=== PATIENT | female | born 1980 | race Caucasian/White ===

== ENCOUNTER → 2021-12-27 | Outpatient (CLI) ==
[~2021-12-27] MED LIST: ACYC-109; ALPR.5T PO; AZTH50T PO; BSP5T PO; CANASA PR; CIPR-225 PO; CITA40TA19 PO; CLN.1T PO; CPR500T PO; DCS100C; FEXO180T PO; FLUT1DIS26 IH; IBP800T; LABE100T2; LVB.63NB3; MESA1.2T PO; METH4TAB PO; METR500T PO; MMT17NA NS; MNTL10T PO; NEBI5TAB8 PO; ORTHOTRICYCLIN PO; OXC5T; PRD10T PO; PRD20T PO; RT-COMBINH IH; [UNRECOGNIZED DRUG - OTHER]
== END ==
LOC: LABNPT 12:18
PROVIDERS: ATTEND Obstetrics & Gynecology
DX: Z53.9 Procedure and treatment not carried out, unspecified reason (principal)

== ENCOUNTER → 2021-12-27 | Outpatient (CLI) | LOC: MERGE 10:25 → LABNPT 10:25 | PROVIDERS: ATTEND Obstetrics & Gynecology | DX: N89.8 Other specified noninflammatory disorders of vagina (principal); N95.9 Unspecified menopausal and perimenopausal disorder | CPT/HCPCS: 83001; 84443; 87070; 87077; 87088; 87205 ==

== ENCOUNTER → 2022-01-22 | Outpatient (CLI) | payer OTHER ==
--- NOTE | 2022-01-22 18:19 | Diagnostic Imaging Report ---
INDICATION: Routine screening. COMPARISON is made with prior mammograms 01/19/2021 and 12/29/2019. 2-D and 3-D bilateral screening mammography was performed CAD. Both breasts remain heterogeneously dense, limiting the sensitivity of mammography. The parenchymal pattern is stable. No mass or malignant-appearing microcalcifications are seen. Axillae are unremarkable. IMPRESSION: BI-RADS Category 1 No mammographic features suspicious for malignancy are identified. ACR BI-RADS Category 1: Negative. Result letter will be mailed to the patient. Note: At least 10% of breast cancer is not imaged by mammography. Dictated by: Dictated on workstation # [id number]
== END ==
LOC: RAD 14:28
PROVIDERS: ATTEND Obstetrics & Gynecology
DX: Z12.31 Encounter for screening mammogram for malignant neoplasm of breast (principal)
CPT/HCPCS: 77063; 77067

== ENCOUNTER → 2023-03-19 | Outpatient (CLI) | payer OTHER ==
--- NOTE | 2023-03-19 16:43 | Diagnostic Imaging Report ---
INDICATION: Right leg pain with erythema and swelling after cat related injury. TECHNIQUE: AP and lateral views of the right leg were obtained. FINDINGS: There is increased density in the lateral subcutaneous tissues. No acute fracture or dislocation is identified. No abnormal lytic or sclerotic focus is seen. There is no radiopaque foreign body. IMPRESSION: Possible lateral calf region cellulitis without acute osseous abnormality or retained radiopaque foreign object. Dictated by: Dictated on workstation # [id number]
== END ==
LOC: RAD 15:11
PROVIDERS: ATTEND Internal Medicine
DX: L03.115 Cellulitis of right lower limb (principal)
CPT/HCPCS: 73590